=== PATIENT | female | born 1995 | race Caucasian/White ===

== ENCOUNTER 2016-11-20 19:22 | Emergency (ER) | payer SELFPAY ==
[2016-11-20 19:49] VITALS: BP 118/74; PULSE 94; RESP 20; TEMP 98.1; O2SAT 98
[2016-11-20] MEDS ORDERED: ALPR.5 PO (20:13)
[2016-11-20] MEDS ORDERED: BUSP30TA PO (20:13)
[2016-11-20] MEDS ORDERED: FLUO-1 PO (20:13)
[2016-11-20] MEDS ORDERED: SERO400T PO (20:13)
[2016-11-20] MEDS ORDERED: methylPREDNISolone SOD SUCC 125 MG/2 ML VIAL IM ONE (20:30)
[2016-11-20] MEDS ORDERED: diphenhydrAMINE HCL 50 MG/ML VIAL IM ONE (20:30)
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
[2016-11-20] MEDS ORDERED: PRED50 PO ×2 (21:30→21:31)
[2016-11-20] MEDS ORDERED: RANI150T PO ×2 (21:30→21:31)
== END 2016-11-20 21:39 | disposition home or self-care (01) ==
LOC: PHED 19:22 → PHEFT 21:39
DX: L50.9 Urticaria, unspecified (principal)
CPT/HCPCS: 96372; 99282; J1200; J2930

== ENCOUNTER 2017-07-15 19:05 | Emergency (ER) | payer OTHER ==
[~2017-07-15] VITALS: Ht 160 cm; Wt 64.7 kg
[2017-07-15 19:05] VITALS: BP 115/77; PULSE 89; RESP 16; TEMP 97.9; O2SAT 100
[~2017-07-15 19:05] MED LIST: ALPR.5 PO; BUSP30TA PO; FLUO-1 PO; PRED50 PO; RANI150T PO; SERO400T PO
[2017-07-15 19:16] VITALS: BP 115/77; PULSE 89; RESP 16; TEMP 97.9; O2SAT 100
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
[2017-07-16 00:40] VITALS: BP 110/71
== END 2017-07-16 00:49 | disposition home or self-care (01) ==
LOC: PHED 19:05
DX: S00.83XA Contusion of other part of head, initial encounter (principal); S20.211A Contusion of right front wall of thorax, initial encounter; T74.91XA Unspecified adult maltreatment, confirmed, initial encounter; Y09 Assault by unspecified means
CPT/HCPCS: 70450; 70486; 71101; 84703; 99285